=== PATIENT | male | born 1960 | race Caucasian/White ===

== ENCOUNTER 2019-08-27 07:33 | Emergency (ER) | payer OTHER ==
[~2019-08-27] VITALS: Ht 175.3 cm; Wt 91.2 kg
[2019-08-27 07:40] VITALS: Ht 175.3 cm; Wt 91.2 kg
[2019-08-27 09:48] VITALS: BP 138/72
== END 2019-08-27 09:48 | disposition home or self-care (01) ==
LOC: ED 07:33
DX: M16.12 Unilateral primary osteoarthritis, left hip (principal); Z91.041 Radiographic dye allergy status; Z91.013 Allergy to seafood